=== PATIENT | female | born 1950 | race Caucasian/White ===

== ENCOUNTER 2016-12-11 16:15 | Emergency (ER) | payer BC ==
[2016-12-11] MEDS ORDERED: HYDROmorphone 1 MG/ML 1 ML SYRINGE IVP STA ×2 (16:38→17:34)
[2016-12-11] MEDS ORDERED: ONDANSETRON 4 MG/2 ML VIAL IVP STA (16:38)
--- NOTE | 2016-12-11 16:40 | ED ---
General Adult HPI - General Chief complaint: Extremity Injury, Lower Stated complaint: Fall Left ankle injury Time Seen by Provider: 12/11/16 16:19 Source: patient, EMS, RN notes reviewed Mode of arrival: EMS Limitations: no limitations - History of Present Illness Initial comments: Patient's a 66-year-old female who presents emergency room today with a chief complaint of injury to the left ankle that occurred approximately an hour ago. Does admit that she was walking when she slipped with the right foot twisting the left ankle and felt a pop. States unable to bear weight or ambulate. She denies any other complaints or symptoms. Denies any head injury or loss consciousness. Patient denies any recent fever, chills, shortness of breath, chest pain, back pain, abdominal pain, nausea or vomiting, dysuria or hematuria , constipation or diarrhea, headaches or visual changes, or any other complaints. - Related Data Home Medications Medication Instructions Recorded Confirmed Benazepril/Hydrochlorothiazide 2 tab PO DAILY 12/11/16 12/11/16 [Benazepril-Hctz 10-12.5 mg Tab] Budesonide/Formoterol Fumarate 2 puff INHALATION RT-BID 12/11/16 12/11/16 [Symbicort 160-4.5 Mcg Inhaler] Esomeprazole Magnesium [NexIUM] 40 mg PO DAILY 12/11/16 12/11/16 amLODIPine [Norvasc] 5 mg PO DAILY 12/11/16 12/11/16 sulfaSALAzine [Azulfidine] 500 mg PO Q8H 12/11/16 12/11/16 Previous Rx's Medication Instructions Recorded Hydrocodone/Acetaminophen [Phoenix 1 each PO Q6HR PRN #20 tab 12/11/16 5-325] Allergies Allergy/AdvReac Type Severity Reaction Status Date / Time No Known Allergies Allergy Verified 12/11/16 17:48 Review of Systems ROS Statement: Those systems with pertinent positive or pertinent negative responses have been documented in the HPI. ROS Other: All systems not noted in ROS Statement are negative. Past Medical History Past Medical History: COPD, Hypertension Additional Past Medical History / Comment(s): ulcerative colitis, fatty liver History of Any Multi-Drug Resistant Organisms: None Reported Past Surgical History: Cholecystectomy, Hysterectomy, Tonsillectomy Additional Past Surgical History / Comment(s): left knee scope, oopherectomy Past Psychological History: No Psychological Hx Reported Smoking Status: Former smoker Past Alcohol Use History: None Reported Past Drug Use History: None Reported General Exam - General Exam Comments Initial Comments: General: The patient is awake and alert, in no distress, and does not appear acutely ill. Neck: The neck is supple, there is no tenderness or JVD. Cardiovascular: There is a regular rate and rhythm. No murmur, rub or gallop is appreciated. Respiratory: Lungs are clear to auscultation, respirations are non-labored, breath sounds are equal. No wheezes, stridor, rales, or rhonchi. Musculoskeletal: Patient does have moderate swelling to the left ankle. Patient tender palpation over both the medial and lateral malleolus. Mild tenderness down into the distal third metatarsal. No tenderness over the fibular head or the left knee. No other bony tenderness. Sensation intact pulses equal bilaterally 2+. Strength unable be assessed. Neurological: A&O x 3. CN II-XII intact, There are no obvious motor or sensory deficits. Coordination appears grossly intact. Speech is normal. Skin: Skin is warm and dry and no rashes or lesions are noted. Psychiatric: Normal mood and affect. Limitations: no limitations Course Vital Signs 12/11/16 16:22 Temperature 98.3 F Pulse Rate 88 Respiratory 20 Rate Blood Pressure 145/75 O2 Sat by Pulse 95 Oximetry Medical Decision Making - Medical Decision Making Patient's x-ray reviewed and does show a trimalleolar fracture of the left ankle. Case discussed with attending physician Dr. Londono who did discuss case with on-call orthopedics Dr. Gonzalez who recommended reduction placed in an splint and following up the office tomorrow morning. Postreduction film reviewed shows good alignment. Patient discharged on pain medication advised follow-up with orthopedics morning. Patient will plan states her stated and is in agreement. Disposition Clinical Impression: Trimalleolar fracture Disposition: HOME SELF-CARE Condition: Good Instructions: Ankle Fracture (ED) Prescriptions: Hydrocodone/Acetaminophen [Phoenix 5-325] 1 each PO Q6HR PRN #20 tab PRN Reason: Pain Referrals: None,Stated [Primary Care Provider] - 1-2 days Prabhjot Gonzalez DO [Doctor of Osteopathic Medicine] - 1-2 days Time of Disposition: 18:19
--- NOTE | 2016-12-11 17:21 | XR ---
History foot pain. Comparison none. Technique 3 views. FINDINGS: There is a spiral fracture of the distal fibula. There is transverse fracture of the medial malleolus . There is probably a 1 cm chip fracture of the posterior malleolus. There is almost 2 cm lateral sub luxation of the talus. There is an Achilles calcaneal spur. CONCLUSION: Trimalleolar fracture of the ankle with partial lateral dislocation of the talus.
--- NOTE | 2016-12-11 17:23 | XR ---
History foot pain. comparison none. Technique 3 views. FINDINGS: Metatarsals are intact. There is a ankle joint fracture that is described in the ankle report. The pa rtial bones are intact. The toes appear intact. Exam is limited slightly by patient positioning. CONCLUSION: Ankle fracture. No fracture seen of the left foot.
[2016-12-11] MEDS ORDERED: DIAZEPAM 5 MG/ML 2 ML SYRINGE IVP STA (17:24)
--- NOTE | 2016-12-11 18:39 | XR ---
EXAMINATION TYPE: XR ankle limited LT DATE OF EXAM: 12/11/2016 6:17 PM COMPARISON: Today HISTORY: Fracture post reduction TECHNIQUE: 2 views FINDINGS: There is trimalleolus fracture of the left ankle. There is a few millimeter anterior and la teral subluxation of the talus. Fragments are in reasonable position. IMPRESSION: There is satisfactory reduction of the fracture and subluxation compared to the first exa m.
[2016-12-11 18:50] VITALS: TEMP 97.1
[2016-12-11] MEDS ORDERED: NALOXONE 0.4 MG/ML 10 ML VIAL IVP STA (19:22)
[2016-12-11 20:06] VITALS: BP 128/70; PULSE 70; RESP 16
== END 2016-12-11 20:03 | disposition home or self-care (01) ==
LOC: EC 16:15
DX: S82.852A Displaced trimalleolar fracture of left lower leg, initial encounter for closed fracture (principal); I10 Essential (primary) hypertension; J44.9 Chronic obstructive pulmonary disease, unspecified; Z87.891 Personal history of nicotine dependence; Z79.51 Long term (current) use of inhaled steroids; Z79.899 Other long term (current) drug therapy; W01.0XXA Fall on same level from slipping, tripping and stumbling without subsequent striking against object, initial encounter; X50.1XXA Overexertion from prolonged static or awkward postures, initial encounter; Y92.89 Other specified places as the place of occurrence of the external cause
CPT/HCPCS: 73600; 73610; 73630; 99284; 27818; 96374; 96375 ×3; 96376; J2310; J3360; J2405; J1170

== ENCOUNTER → 2016-12-25 | Outpatient (CLI) | payer BC ==
[2016-12-25 07:37] LABS: Potassium 4.3 mmol/L (3.5-5.1)
== END | disposition home or self-care (01) ==
LOC: LABWHC1 06:51
PROVIDERS: ATTEND Orthopaedic Surgery
DX: Z01.812 Encounter for preprocedural laboratory examination (principal); Z79.899 Other long term (current) drug therapy
CPT/HCPCS: 36415; 80051

== ENCOUNTER → 2017-04-19 | Outpatient (CLI) | payer BC | END | disposition home or self-care (01) | LOC: LABWHC1 10:27 | PROVIDERS: ATTEND Family Medicine | DX: E87.6 Hypokalemia (principal) | CPT/HCPCS: 36415; 84132 ==

== ENCOUNTER → 2017-04-23 | Outpatient (CLI) | payer BC | END | disposition home or self-care (01) | LOC: LABWHC1 14:42 | PROVIDERS: ATTEND Family Medicine | DX: E87.6 Hypokalemia (principal) | CPT/HCPCS: 36415; 84132 ==

== ENCOUNTER → 2017-05-01 | Outpatient (CLI) | payer BC | END | disposition home or self-care (01) | LOC: LABWHC1 13:55 | PROVIDERS: ATTEND Family Medicine | DX: E87.6 Hypokalemia (principal) | CPT/HCPCS: 36415; 84132 ==

== ENCOUNTER → 2017-06-13 | Outpatient (CLI) | payer BC ==
--- NOTE | 2017-06-18 10:24 | MM ---
Reason for exam: screening (asymptomatic). History: Patient is postmenopausal. Benign excisional biopsy of the left breast, 1993. Physical Findings: A clinical breast exam by your physician is recommended on an annual basis and results should be correlated with mammographic findings. MG Screening Mammo w CAD Bilateral CC and MLO view(s) were taken. No prior studies available for comparison. The breast tissue is heterogeneously dense. This may lower the sensitivity of mammography. Finding: There are typically benign round, diffuse/scattered and grouped calcifications in both breasts. Focal asymmetry several levels. There is an indeterminate group of calcifications in the right breast anterior middle depth slight upper aspect. ASSESSMENT: Incomplete: need additional imaging evaluation, BI-RAD 0 RECOMMENDATION: Special view mammogram of the right breast. Ultrasound of the left breast. [facility] will attempt to contact patient to return for supplemental views and ultrasound.
== END | disposition home or self-care (01) ==
LOC: RADMAMWWP 10:02
PROVIDERS: ATTEND Family Medicine
DX: Z12.31 Encounter for screening mammogram for malignant neoplasm of breast (principal)

== ENCOUNTER → 2017-06-28 | Outpatient (CLI) | payer BC ==
--- NOTE | 2017-07-02 08:20 | MM ---
Reason for exam: additional evaluation requested from abnormal screening. Last mammogram was performed less than 1 month ago. History: Patient is postmenopausal. Benign excisional biopsy of the left breast, 1993. Took estrogen for 10 years beginning at age 50. Took progesterone for 10 years beginning at age 50. Physical Findings: Nurse did not find any significant physical abnormalities on exam. MG Work Up Mamm w CAD RT CC, MLO, LM, LM with magnification, and CC with magnification view(s) were taken of the right breast. Prior study comparison: June 13, 2017, bilateral MG screening mammo w CAD. Finding: There are indeterminate calcifications in the right breast. Tissue biopsy recommended. These results were verbally communicated with the patient and result sheet given to the patient on 06/28/17. ASSESSMENT: Suspicious, BI-RAD 4 RECOMMENDATION: Stereotactic core biopsy of the right breast. Called with mammographic findings and has scheduled an appointment for the patient for 07/05/17 at 9:[address] Linton. PRELIMINARY REPORT CALLED AND FAXED TO DR. LINTON ON 07/02/17.
--- NOTE | 2017-07-02 08:22 | USB ---
Reason for exam: additional evaluation requested from abnormal screening. History: Patient is postmenopausal. Benign excisional biopsy of the left breast, 1993. Took estrogen for 10 years beginning at age 50. Took progesterone for 10 years beginning at age 50. US Breast Workup LT Left breast ultrasound demonstrates a 1.2 x 0.5 x 1.0cm oval, cystic lesion at 12 o'clock, a 1.1 x 0.5 x 0.9cm oval, cystic lesion at 3 o'clock, a 0.8 x 0.3 x 0.7cm oval, cystic lesion at 5 o'clock and a 0.6 x 0.3 x 0.5cm oval, mixed lesion at 7 o'clock for which a 6 month follow up is recommended. These results were verbally communicated with the patient and result sheet given to the patient on 06/28/17. ASSESSMENT: Probably benign, BI-RAD 3 RECOMMENDATION: Ultrasound of the left breast in 6 months.
== END | disposition home or self-care (01) ==
LOC: RADMAMWWP 13:46
PROVIDERS: ATTEND Family Medicine
DX: R92.8 Other abnormal and inconclusive findings on diagnostic imaging of breast (principal)
CPT/HCPCS: 76641; G0206

== ENCOUNTER 2017-09-06 06:56 | Day surgery (SDC) | payer MEDICARE, BC ==
[2017-09-04 12:03] VITALS: BMI 36.0
[~2017-09-06 06:56] MED LIST: DEXAMETHASONE SOD PHOSPHATE 10 MG/ML 1 ML VIAL IV ONE; HEPARIN SODIUM,PORCINE 5,000 UNIT/ML 1 ML VIAL SQ ONE; HYDROmorphone 0.5 MG/0.5 ML SYRINGE IVP PRN; LACTATED RINGERS 1,000 ML IV SCH; LIDOCAINE 1% 20 ML VIAL (10MG/ML) FOR IV START INTRADERMA PRN; MIDAZOLAM 2 MG/2 ML VIAL IV PRN; ONDANSETRON 4 MG/2 ML VIAL IVP ONE; Pre Op ABX Message 1 EACH MISC MISCELLANE ONE; SCOPOLAMINE 1.5MG/72HR PATCH TRANSDERM ONE
[2017-09-06] MEDS ORDERED: LIDOCAINE 1% INJ 10MG/ML (20 ML MDV) SQ ONE (08:41)
[2017-09-06] MEDS ORDERED: BUPIVACAINE (PF) 0.25% 30 ML VIAL SQ ONE (09:14)
[2017-09-06] MEDS ORDERED: LIDOCAINE 1% INJ 10MG/ML (20 ML MDV) ONE (09:57)
[2017-09-06] MEDS ORDERED: fentaNYL (PF) 50 MCG/ML 2 ML AMP ONE (09:57)
[2017-09-06] MEDS ORDERED: SUCCINYLCHOLINE CHLORIDE 100 MG/5 ML SYR IV ONE (09:57)
[2017-09-06] MEDS ORDERED: PROPOFOL 10 MG/ML 20 ML VIAL IV ONE (09:57)
[2017-09-06] MEDS ORDERED: SODIUM CHLORIDE 0.9% 50 ML with ceFAZolin 2,000 MG IV ONE ×2 (10:09)
[2017-09-06] MEDS ORDERED: LACTATED RINGERS 1,000 ML IV ONE (10:27)
[2017-09-06] MEDS ORDERED: NALOXONE 0.4 MG/ML 1 ML VIAL IV PRN (10:43)
[2017-09-06] MEDS ORDERED: traMADol 50 MG TAB PO PRN (10:43)
[2017-09-06] MEDS ORDERED: HYDROcodone/APAP 5-325MG 1 EACH TAB PO PRN (10:43)
--- NOTE | 2017-09-06 10:49 | P.OP ---
Date of Procedure: 09/06/17 Procedure(s) Performed: PREOPERATIVE DIAGNOSIS: Abnormal right mammogram POSTOPERATIVE DIAGNOSIS: Same PROCEDURE: Right Breast wire localization biopsy SURGEON: Kasia EBL: Minimal ANESTHESIA: Sedation plus local COMPLICATIONS: None OPERATIVE PROCEDURE: Patient was placed on the operating room table in the supine position. The patient's breast was prepped and draped in usual sterile fashion. A curvilinear incision was made adjacent to the wire entrance site. I followed the wire down into the breast tissue. The breast tissue around the tip of the wire was fully excised using electrocautery. The specimen was sent for specimen radiogram. The subcutaneous tissues were inspected. No bleeding was seen. The subcutaneous tissues were closed using 3-0 Vicryl sutures. The skin was closed using a running 4-0 Monocryl stitch. Steri-Strips and sterile dressings were applied. DISPOSITION: Stable to recovery room
[2017-09-06 10:54] LABS: Glucose,Whole Blood 115 mg/dL (75-99)
[2017-09-06 10:56] VITALS: TEMP 98.2
[2017-09-06] MEDS ORDERED: traMADol 50 MG TAB PO ONE (12:00)
[2017-09-06 12:07] VITALS: RESP 18
[2017-09-06 12:26] VITALS: BP 166/88; PULSE 88
--- NOTE | 2017-09-06 15:36 | MM ---
EXAMINATION TYPE: MG surgical specimen RT DATE OF EXAM: 09/06/2017 COMPARISON: NONE HISTORY: Abnormal mammogram, abnormal previous biopsy TECHNIQUE: Single mammographic specimen is presented. FINDINGS: Where is within the specimen. The wire appears to be pulled back somewhat from the original localization. There loops of clustered fine calcifications at the edge of the specimen and within the specimen. The clip is within the specimen. IMPRESSION: 1. Successful wire localization and excision. Pathology Results: Malignant BREAST, RIGHT, SITE A, BIOPSY: LOBULAR CARCINOMA IN SITU WITH CALCIFICATIONS. BACKGROUND FIBROCYSTIC CHANGE (STROMAL FIBROSIS, CYST FORMATION, ADENOSIS, COLUMNAR CELL CHANGE, DUCT HYPERPLASIA AND CALCIFICATIONS). Recommendation Surgical consult of the right breast. (appropriate oncologic management) DANIEL
--- NOTE | 2017-09-06 15:39 | MM ---
EXAMINATION TYPE: MG pre op needle loc RT DATE OF EXAM: 09/06/2017 COMPARISON: 06/28/2017, 07/22/2017 stereo CLINICAL HISTORY: LCIS TECHNIQUE: Needle localization with wire placement and surgical excision of area of concern in the right breast. FINDINGS: The procedure of needle localization with wire placement and than surgical excision was explained to the patient. Benefits, alternatives, and risks were discussed. An informed consent was then obtained. The shortest pathway for procedure was chosen. Shortest pathway was superior approach. The overlying skin was prepped and draped in usual sterile fashion. Lidocaine buffered with bicarbonate was used as anesthetic into the skin and subcutaneous tissue up to the level of area of concern. A 11 cm needle was used. It was placed via a superior approach under mammographic guidance. Subsequent 90 degrees mammogram show the needle to be in satisfactory position relative to the targeted area. At this point, wire was placed and the needle was withdrawn. The wire was fixed to patient's skin. Images were marked for surgeon. Case was discussed with the surgeon by telephone prior to surgery. Calcifications were localized. This area is passed the clip which is reported to have some migration from the original biopsy site. The patient tolerated the procedure well without any immediate complication. The patient was kept in the radiology department for short stay after the procedure and then taken to surgery for surgical excision. Targeted calcifications and wire are identified in specimen mammogram. The patient was kept in hospital for short stay after the procedure and then discharged home in stable condition. IMPRESSION: 1. Successful wire localization and excision. Recommendations: 1. Recommendations are pending pathology results. Pathology Results: Malignant BREAST, RIGHT, SITE A, BIOPSY: LOBULAR CARCINOMA IN SITU WITH CALCIFICATIONS. BACKGROUND FIBROCYSTIC CHANGE (STROMAL FIBROSIS, CYST FORMATION, ADENOSIS, COLUMNAR CELL CHANGE, DUCT HYPERPLASIA AND CALCIFICATIONS). Recommendation Surgical consult of the right breast. (appropriate oncologic management) DANIEL
== END 2017-09-06 13:04 | disposition home or self-care (01) ==
LOC: OR 06:56
PROVIDERS: ATTEND Surgery
DX: D05.01 Lobular carcinoma in situ of right breast (principal); N60.91 Unspecified benign mammary dysplasia of right breast; N60.21 Fibroadenosis of right breast; I10 Essential (primary) hypertension; J44.9 Chronic obstructive pulmonary disease, unspecified; K21.9 Gastro-esophageal reflux disease without esophagitis; K51.90 Ulcerative colitis, unspecified, without complications; E11.9 Type 2 diabetes mellitus without complications; Z79.899 Other long term (current) drug therapy; Z79.51 Long term (current) use of inhaled steroids; Z88.6 Allergy status to analgesic agent
CPT/HCPCS: 19125; 88307; 76098; 19281; J2250; J1644; J1100; J2405; J2001; J3010; J0690; J0330; J2704

== ENCOUNTER → 2018-03-24 | Outpatient (CLI) | payer MEDICARE ==
--- NOTE | 2018-03-24 10:40 | MM ---
Reason for exam: follow-up at short interval from prior study. Last mammogram was performed 9 months ago. History: Patient is postmenopausal and has history of breast cancer at age 66. Malignant MG pre op needle loc RT of the right breast, September 06, 2017. Malignant MG stereo VAD BX RT of the right breast, July 22, 2017. Benign excisional biopsy of the left breast, 1993. Took estrogen for 10 years beginning at age 50. Took progesterone for 10 years beginning at age 50. Physical Findings: Nurse did not find any significant physical abnormalities on exam. MG 3D Diag Mammo W/Cad RT CC and MLO view(s) were taken of the right breast. Prior study comparison: June 28, 2017, right breast MG work up mamm w CAD RT. June 13, 2017, bilateral MG screening mammo w CAD. The breast tissue is heterogeneously dense. This may lower the sensitivity of mammography. There is chronic nodularity in the right breast. Post surgical changes in the right breast. Patient due for left side in 2-3 months. Any evolving post surgical changes can be reassessed at that time. These results were verbally communicated with the patient and result sheet given to the patient on 03/24/18. ASSESSMENT: Probably benign, BI-RAD 3 RECOMMENDATION: Follow-up diagnostic mammogram of both breasts in 3 months. Back on schedule for June 2018.
== END | disposition home or self-care (01) ==
LOC: RADMAMWWP 09:28
PROVIDERS: ATTEND Surgery
DX: Z08 Encounter for follow-up examination after completed treatment for malignant neoplasm (principal); Z85.3 Personal history of malignant neoplasm of breast
CPT/HCPCS: 77065; G0279; 77061

== ENCOUNTER → 2018-06-25 | Outpatient (CLI) | payer MEDICARE ==
--- NOTE | 2018-06-25 11:55 | MM ---
Reason for exam: follow-up at short interval from prior study. Last mammogram was performed 3 months ago. History: Patient is postmenopausal and has history of breast cancer at age 66. Malignant MG pre op needle loc RT of the right breast, September 06, 2017. Malignant MG stereo VAD BX RT of the right breast, July 22, 2017. Benign excisional biopsy of the left breast, 1993. Took estrogen for 10 years beginning at age 50. Took progesterone for 10 years beginning at age 50. Physical Findings: Nurse did not find any significant physical abnormalities on exam. MG Diagnostic Mammo w CAD SARAH Bilateral CC, MLO, and XCCL view(s) were taken. Prior study comparison: March 24, 2018, right breast MG 3d diag mammo w/cad RT. June 28, 2017, right breast MG work up mamm w CAD RT. The breast tissue is heterogeneously dense. This may lower the sensitivity of mammography. There is chronic nodularity bilaterally. Given the extensive nodularity which appear relatively similar and patients high risk right excision of LCIS, diagnostic follow up recommended in 1 year. These results were verbally communicated with the patient and result sheet given to the patient on 06/25/18. ASSESSMENT: Probably benign, BI-RAD 3 RECOMMENDATION: Follow-up diagnostic mammogram of both breasts in 1 year.
== END | disposition home or self-care (01) ==
LOC: RADMAMWWP 09:39
PROVIDERS: ATTEND Surgery
DX: R92.8 Other abnormal and inconclusive findings on diagnostic imaging of breast (principal)
CPT/HCPCS: 77066

== ENCOUNTER → 2019-08-13 | Outpatient (CLI) | payer MEDICARE, BC ==
--- NOTE | 2019-08-17 09:45 | MM ---
Reason for exam: screening (asymptomatic). Last mammogram was performed 1 year and 2 months ago. History: Patient is postmenopausal and has history of breast cancer at age 66. Malignant MG pre op needle loc RT of the right breast, September 06, 2017. Malignant MG stereo VAD BX RT of the right breast, July 22, 2017. Benign excisional biopsy of the left breast, 1993. Took estrogen for 10 years beginning at age 50. Took progesterone for 10 years beginning at age 50. Physical Findings: A clinical breast exam by your physician is recommended on an annual basis and results should be correlated with mammographic findings. MG 3D Screening Mammo W/Cad Bilateral CC and MLO view(s) were taken. Prior study comparison: June 25, 2018, bilateral MG diagnostic mammo w CAD SARAH. March 24, 2018, right breast MG 3d diag mammo w/cad RT. The breast tissue is heterogeneously dense. This may lower the sensitivity of mammography. Stable benign calcifications. No significant changes when compared with prior studies. ASSESSMENT: Benign, BI-RAD 2 RECOMMENDATION: Routine screening mammogram of both breasts in 1 year.
== END | disposition home or self-care (01) ==
LOC: RADMAMWWP 07:40
PROVIDERS: ATTEND Family Medicine
DX: Z12.31 Encounter for screening mammogram for malignant neoplasm of breast (principal)
CPT/HCPCS: 77063; 77067

== ENCOUNTER → 2020-09-05 | Outpatient (CLI) | payer MEDICARE ==
[~2020-09-05] MED LIST changes: -DEXAMETHASONE SOD PHOSPHATE 10 MG/ML 1 ML VIAL IV ONE; -HEPARIN SODIUM,PORCINE 5,000 UNIT/ML 1 ML VIAL SQ ONE; -HYDROmorphone 0.5 MG/0.5 ML SYRINGE IVP PRN; -LACTATED RINGERS 1,000 ML IV SCH; -LIDOCAINE 1% 20 ML VIAL (10MG/ML) FOR IV START INTRADERMA PRN; -MIDAZOLAM 2 MG/2 ML VIAL IV PRN; -ONDANSETRON 4 MG/2 ML VIAL IVP ONE; -Pre Op ABX Message 1 EACH MISC MISCELLANE ONE; +REGADENOSON 0.4 MG/5 ML SYRINGE IV ONE; -SCOPOLAMINE 1.5MG/72HR PATCH TRANSDERM ONE
--- NOTE | 2020-09-05 12:20 | NM ---
EXAMINATION TYPE: NM stress lexiscan cardiolite DATE OF EXAM: 09/05/2020 COMPARISON: NONE HISTORY: I10 hypertention TECHNIQUE: After the intravenous administration of 9.7 mCi Tc 99m Sestamibi - Cardiolite resting SPE CT images acquired 45 minutes post injection. The patient received 0.4mg Lexiscan, 25.9 mCi Tc 99m Sestamibi - Stress images obtained [address] injection FINDINGS: Review of stress and rest SPECT images demonstrates no distinct perfusion abnormality. Gated analysi s shows normal wall motion with an estimated left ventricular ejection fraction of 30 %. IMPRESSION: No scintigraphic evidence for reversible ischemia.
--- NOTE | 2020-09-05 12:55 | P.STRESS ---
- Stress Test Note Stress Test Results/Findings: Exam Performed: NM stress lexiscan cardiolite Exam Date: 09/05/20 Reason for Exam: CHEST PRESSURE Height: 5 ft 9 in Weight: 116.573 kg Protocol: LEXISCAN CARDIOLITE Stage: N/A Duration of Exercise: N/A Resting Heart Rate: 86 Resting Blood Pressure: 135/71 Maximum Achieved Heart Rate: 104 Maximum Achieved Blood Pressure: 150/73 85% PMHR: 130 100% PMHR: 153 METS: N/A Technologist Comment: Stress Test Results/Findings: At baseline EKG showed normal sinus rhythm, left axis deviation, nonspecific T- wave inversions in aVL, V1, occasional PVCs. Patient recieved IV infusion of Lexiscan 0.4mg and at peak infusion EKG showed no significant change from baseline. Conclusions: 1. Normal EKG response to Lexiscan infusion 2. Nuclear imaging to be reported separately.
== END | disposition home or self-care (01) ==
LOC: RADNMMAIN 08:21
PROVIDERS: ATTEND Family Medicine
DX: I10 Essential (primary) hypertension (principal); E11.9 Type 2 diabetes mellitus without complications; E78.00 Pure hypercholesterolemia, unspecified
CPT/HCPCS: 93017; 78452; A9500

== ENCOUNTER → 2021-10-04 | Outpatient (CLI) | payer MEDICARE ==
--- NOTE | 2021-10-05 13:12 | MM ---
Reason for exam: additional evaluation requested from abnormal screening. Last mammogram was performed less than 1 month ago. History: Patient is postmenopausal and has history of breast cancer at age 66. Malignant MG pre op needle loc RT of the right breast, September 06, 2017. Malignant MG stereo VAD BX RT of the right breast, July 22, 2017. Benign excisional biopsy of the left breast, 1993. Took estrogen for 10 years beginning at age 50. Took progesterone for 10 years beginning at age 50. Physical Findings: Nurse Summary: 3cm adenopathy in the left axilla (nurse mj). MG 3D Work Up W/Cad RT CC with magnification, LM with magnification, and LM view(s) were taken of the right breast. Prior study comparison: September 25, 2021, bilateral MG 3d screening mammo w/cad. August 13, 2019, bilateral MG 3d screening mammo w/cad. The breast tissue is heterogeneously dense. This may lower the sensitivity of mammography. Benign appearing calcifications in the right breast. These results were verbally communicated with the patient and result sheet given to the patient on 10/04/21. ASSESSMENT: Probably benign, BI-RAD 3 RECOMMENDATION: Follow-up diagnostic mammogram of the right breast in 3 months.
--- NOTE | 2021-10-05 13:13 | USB ---
Reason for exam: additional evaluation requested from abnormal screening. History: Patient is postmenopausal and has history of breast cancer at age 66. Malignant MG pre op needle loc RT of the right breast, September 06, 2017. Malignant MG stereo VAD BX RT of the right breast, July 22, 2017. Benign excisional biopsy of the left breast, 1993. Took estrogen for 10 years beginning at age 50. Took progesterone for 10 years beginning at age 50. US Breast Workup Limited LT Left limited breast ultrasound including focal area of concern, retroareolar and axilla demonstrates a 2.6 x 1.1 x 2.1cm lymph node at the axilla. These results were verbally communicated with the patient and result sheet given to the patient on 10/04/21. ASSESSMENT: Probably benign, BI-RAD 3 RECOMMENDATION: Ultrasound of the left breast in 3 months.
== END | disposition home or self-care (01) ==
LOC: RADMAMWWP 14:52
PROVIDERS: ATTEND Family Medicine
DX: R92.8 Other abnormal and inconclusive findings on diagnostic imaging of breast (principal); N63.0 Unspecified lump in unspecified breast; Z78.0 Asymptomatic menopausal state; Z85.3 Personal history of malignant neoplasm of breast
CPT/HCPCS: 77065; 76642; G0279; 77061

== ENCOUNTER → 2022-04-18 | Outpatient (CLI) | payer MEDICARE ==
--- NOTE | 2022-04-18 15:22 | USB ---
Reason for Exam: Follow-up at short interval from prior study. Patient History: Menarche at age 15. First Full-Term at age 23. Left ovary removed at age 50. Right ovary removed at age 50. Hysterectomy at age 50. Postmenopausal. Breast cancer, right, age 66. Estrogen for 10 years from age 50 until age 60. Progesterone for 10 years from age 50 until age 60. 1993, Benign Excisional Biopsy on the left side. 09/06/2017, Malignant Core Biopsy on the right side. 07/22/2017, Malignant Core Biopsy on the right side. Technique: Method: Targeted. Prior Study Comparison: 08/13/2019 Bilateral Screening Mammogram, [facility]. 09/25/2021 Bilateral Screening Mammogram, [facility]. 10/04/2021 Right Diagnostic Mammogram, [facility]. Findings: The axilla of the left breast was scanned. There is a 2.6 x 1.1 x 2.1 cm lymph node within the left axilla, present previously. Exam appears stable from 10/04/2021. Overall Assessment: Benign, BI-RAD 2 Management: Diagnostic Mammogram of both breasts in 5 months. A clinical breast exam by your physician is recommended on an annual basis and results should be correlated with mammographic findings. Electronically signed and approved by: Bertram Fitzgerald D.O. Radiologis
--- NOTE | 2022-04-18 16:53 | MM ---
Reason for Exam: Clinical finding. Last screening mammogram was performed 6 month(s) ago. Patient History: Menarche at age 15. First Full-Term at age 23. Left ovary removed at age 50. Right ovary removed at age 50. Hysterectomy at age 50. Postmenopausal. Breast cancer, right, age 66. Estrogen for 10 years from age 50 until age 60. Progesterone for 10 years from age 50 until age 60. 1993, Benign Excisional Biopsy on the left side. 09/06/2017, Malignant Core Biopsy on the right side. 07/22/2017, Malignant Core Biopsy on the right side. Prior Study Comparison: 08/13/2019 Bilateral Screening Mammogram, [facility]. 09/25/2021 Bilateral Screening Mammogram, [facility]. 10/04/2021 Right Diagnostic Mammogram, [facility]. Tissue Density: Right: The breast tissue is heterogeneously dense. This may lower the sensitivity of mammography. Findings: Analyzed By CAD. There is focal asymmetry in the upper outer aspect right breast which appears stable. Benign scattered calcifications are present. No suspicious spiculated or lobular masses cluster of microcalcifications, architectural distortion or other secondary signs to radiographically apparent. Overall Assessment: Benign, BI-RAD 2 Management: Diagnostic Mammogram of the right breast in 1 year. A clinical breast exam by your physician is recommended on an annual basis and results should be correlated with mammographic findings. This exam should not preclude additional follow-up of suspicious palpable abnormalities. Results were given to the patient verbally at the time of exam. Electronically signed and approved by: Bertram Fitzgerald D.O. Radiologis
== END | disposition home or self-care (01) ==
LOC: RADMAMWWP 14:22
PROVIDERS: ATTEND Family Medicine
DX: C50.919 Malignant neoplasm of unspecified site of unspecified female breast (principal); R92.8 Other abnormal and inconclusive findings on diagnostic imaging of breast; Z78.0 Asymptomatic menopausal state
CPT/HCPCS: 77065; 76642; G0279; 77061

== ENCOUNTER → 2022-09-18 | Outpatient (CLI) | payer MEDICARE ==
--- NOTE | 2022-09-18 11:42 | MM ---
Reason for Exam: Follow-up at short interval from prior study. Last screening mammogram was performed 11 month(s) ago. Patient History: Menarche at age 15. First Full-Term at age 23. Left ovary removed at age 50. Right ovary removed at age 50. Hysterectomy at age 50. Postmenopausal. Breast cancer, right, age 66. Estrogen for 10 years from age 50 until age 60. Progesterone for 10 years from age 50 until age 60. 1993, Benign Excisional Biopsy on the left side. 09/06/2017, Malignant Core Biopsy on the right side. 07/22/2017, Malignant Core Biopsy on the right side. Tissue Density: There are scattered fibroglandular densities. Findings: Analyzed By CAD. There is some underlying chronic nodularity. A area of 1 cm nodularity central lower outer quadrant left breast middle to posterior depth appears more defined. On spot compression, lobulated margins are present. Some minimal associated calcifications. At the site of previous upper outer quadrant posterior right breast microcalcifications, there is an oval area of focal asymmetry which is slightly more defined. This may represent superimposition shadow but further ultrasound assessment recommended. The calcifications are unchanged. Remote history of right breast cancer. Overall Assessment: Incomplete: need additional imaging evaluation, BI-RAD 0 Management: Diagnostic Breast Ultrasound of both breasts. Right upper outer quadrant and left lower outer quadrant. Electronically signed and approved by: Sarahy Chavez M.D. Radiologist
--- NOTE | 2022-09-18 12:57 | USB ---
Reason for Exam: Additional evaluation requested from abnormal screening. Patient History: Menarche at age 15. First Full-Term at age 23. Left ovary removed at age 50. Right ovary removed at age 50. Hysterectomy at age 50. Postmenopausal. Breast cancer, right, age 66. Estrogen for 10 years from age 50 until age 60. Progesterone for 10 years from age 50 until age 60. 1993, Benign Excisional Biopsy on the left side. 09/06/2017, Malignant Core Biopsy on the right side. 07/22/2017, Malignant Core Biopsy on the right side. Technique: Method: Targeted. Prior Study Comparison: 09/25/2021 Bilateral Screening Mammogram, [facility]. 10/04/2021 Right Diagnostic Mammogram, [facility]. 10/04/2021 Left Diagnostic Ultrasound, [facility] 04/18/2022 Right MG 3D diag mammo w/cad RT, [facility]. 04/18/2022 Right US breast axilla LT, [facility]. Findings: The upper outer quadrant of the right breast, the lower outer quadrant of the left breast, the axilla of both breasts and the retroareolar of both breasts were scanned. Targeted ultrasound upper outer quadrant right breast including the subareolar region and axilla. There is a heterogeneous 4.3 x 3.7 x 2.7 cm area that has the appearance of a dense island of tissue. No discrete solid or cystic lesion. Subareolar duct ectasia is noted. Target ultrasound lower outer quadrant left breast 3:00 to 6:00 including the axilla and subareolar region. At the 4:00 position, there is either a debris-filled cyst cluster or mildly complex cyst measuring 1.1 x 0.7 x 0.5 cm. Internal thickened septation measures up to 3 mm. Likely mammographic correlate. Six-month follow-up recommended to reassess. Some additional duct ectasia is present on this side as well. No axillary lymphadenopathy. Overall Assessment: Probably benign, BI-RAD 3 Management: Diagnostic Mammogram of both breasts in 6 months. Diagnostic Breast Ultrasound of the left breast in 6 months. For (1) the mammographic upper outer quadrant lateral right breast asymmetric density, (2) lower outer quadrant left breast focal asymmetry, and (3) either cyst cluster versus complex cyst 4:00 left breast on ultrasound. Results were given to the patient verbally at the time of exam. Electronically signed and approved by: Sarahy Chavez M.D. Radiologist
== END | disposition home or self-care (01) ==
LOC: RADMAMWWP 10:42
PROVIDERS: ATTEND Family Medicine
DX: R92.8 Other abnormal and inconclusive findings on diagnostic imaging of breast (principal); Z78.0 Asymptomatic menopausal state; Z90.721 Acquired absence of ovaries, unilateral
CPT/HCPCS: 77066; 76642; G0279; 77062

== ENCOUNTER → 2023-03-20 | Outpatient (CLI) | payer MEDICARE ==
--- NOTE | 2023-03-20 10:35 | MM ---
Reason for Exam: Follow-up at short interval from prior study. Last screening mammogram was performed 6 month(s) ago. Patient History: Menarche at age 15. First Full-Term at age 23. Left ovary removed at age 50. Right ovary removed at age 50. Hysterectomy at age 50. Postmenopausal. Breast cancer, right, age 66. Estrogen for 10 years from age 50 until age 60. Progesterone for 10 years from age 50 until age 60. 1993, Benign Excisional Biopsy on the left side. 09/06/2017, Malignant Core Biopsy on the right side. 07/22/2017, Malignant Core Biopsy on the right side. Prior Study Comparison: 03/24/2018 Right Diagnostic Mammogram, [facility]. 06/25/2018 Bilateral Diagnostic Mammogram, [facility]. 08/13/2019 Bilateral Screening Mammogram, [facility]. 09/25/2021 Bilateral Screening Mammogram, [facility]. 10/04/2021 Right Diagnostic Mammogram, [facility]. 10/04/2021 Left Diagnostic Ultrasound, [facility]. 04/18/2022 Right MG 3D diag mammo w/cad RT, [facility]. 04/18/2022 Right US breast axilla LT, [facility]. 09/18/2022 Bilateral US breast limited BILAT, [facility]. 09/18/2022 Bilateral MG 3D diag mammo w/cad SARAH, [facility]. Tissue Density: The breast tissue is heterogeneously dense. This may lower the sensitivity of mammography. Findings: Analyzed By CAD. Stable exam from 09/18/2022 with similar appearing fibroglandular tissue bilaterally. Findings on prior ultrasound will be followed up with ultrasound same day. No new suspicious calcifications, masses or distortions identified. Overall Assessment: Incomplete: need additional imaging evaluation, BI-RAD 0 Management: Diagnostic Breast Ultrasound of the left breast. Results were given to the patient verbally at the time of exam. Patient should continue monthly self-breast exams. A clinical breast exam by your physician is recommended on an annual basis. This exam should not preclude additional follow-up of suspicious palpable abnormalities. Note on Krista scores and lifetime risk: 1. A Krista score greater than 3% is considered moderate risk. If this is the case, consider specialist referral to assess eligibility for a risk reducing agent. 2. If overall lifetime risk for the development of breast cancer is 20% or higher, the patient may qualify for future screening with alternating mammogram and breast MRI. Electronically signed and approved by: Jose Perez DO
--- NOTE | 2023-03-20 11:46 | USB ---
Reason for Exam: Follow-up at short interval from prior study. Patient History: Menarche at age 15. First Full-Term at age 23. Left ovary removed at age 50. Right ovary removed at age 50. Hysterectomy at age 50. Postmenopausal. Breast cancer, right, age 66. Estrogen for 10 years from age 50 until age 60. Progesterone for 10 years from age 50 until age 60. 1993, Benign Excisional Biopsy on the left side. 09/06/2017, Malignant Core Biopsy on the right side. 07/22/2017, Malignant Core Biopsy on the right side. Technique: Method: Targeted. Prior Study Comparison: 10/04/2021 Right Diagnostic Mammogram, [facility]. 04/18/2022 Right MG 3D diag mammo w/cad RT, [facility]. 09/18/2022 Bilateral US breast limited BILAT, [facility]. 09/18/2022 Bilateral MG 3D diag mammo w/cad SARAH, [facility]. Findings: The lateral section of the breast of the left breast, the area of palpable concern of the left breast, the axilla of the left breast and the retroareolar of the left breast were scanned. Imaged: Ultrasound imaging of: All 4 quadrants, the retroareolar region and axilla. Suspected dilated ducts within the left breast at 4:00 15 cm from the nipple which are stable from 09/18/2022. Stable appearing lymph node at 3:00 20 cm from the nipple. No suspicious features. Overall Assessment: Benign, BI-RAD 2 Management: Screening Mammogram of both breasts in 1 year. A clinical breast exam by your physician is recommended on an annual basis and results should be correlated with mammographic findings. This exam should not preclude additional follow-up of suspicious palpable abnormalities. Results were given to the patient verbally at the time of exam. Electronically signed and approved by: Jose Perez DO
== END | disposition home or self-care (01) ==
LOC: RADMAMWWP 09:35
PROVIDERS: ATTEND Family Medicine
DX: R92.8 Other abnormal and inconclusive findings on diagnostic imaging of breast (principal); Z78.0 Asymptomatic menopausal state; Z85.3 Personal history of malignant neoplasm of breast
CPT/HCPCS: 77066; 76642; G0279; 77062

== ENCOUNTER → 2024-04-14 | Outpatient (CLI) | payer MEDICARE ==
--- NOTE | 2024-04-14 10:06 | BD ---
EXAMINATION TYPE: Axial Bone Density DATE OF EXAM: 04/14/2024 CLINICAL HISTORY: 73 years old Female. ICD-10 CODE: Z78.0 ASYMPTOMATIC MENOPAUSAL STATE Height: 68.2in Weight: 241lb FRAX RISK QUESTIONS: History of Fracture in Adulthood: yes Secondary Osteoporosis: RISK FACTORS HISTORY OF: MEDICATIONS: EXAM MEASUREMENTS: Bone mineral densitometry was performed using the [employer]. Bone mineral density as measured about the Lumbar spine is: ----- L1-L4(G/cm2): 1.614 T Score Values are as follows: ----- L1: 1.9 ----- L2: 2.4 ----- L3: 4.1 ----- L4: 4.9 ----- L1-L4: 3.6 Z Score Values are as follows: ----- L1: 2.4 ----- L2: 2.9 ----- L3: 4.6 ----- L4: 5.5 ----- L1-L4: 4.1 First dexa at [facility] Bone mineral density about the R hip (g/cm2): 0.844 Bone mineral density about the L hip (g/cm2): 0.918 T Score values are as follows: -----R Neck: -1.6 -----L Neck: -1.3 -----R Total: -1.3 -----L Total: -0.7 Z Score values are as follows: -----R Neck: -0.6 -----L Neck: -0.3 -----R Total: -0.6 -----L Total: 0.0 First dexa at [facility] FRAX%s: The graph provided illustrates a 15.4% chance for a major osteoporotic fx and a 2.4% chance f or the hips probability for fx in 10 years time. IMPRESSION: Normal (Values between +1 and -1 indicate normal bone mass). Consider repeating this study in 5 year s or sooner if there is some new clinical indication. NOTE: T-SCORE=SD OF THE YOUNG ADULT MEAN.
--- NOTE | 2024-04-16 09:52 | MM ---
Reason for Exam: Screening (asymptomatic). Last mammogram was performed 1 year(s) and 1 month(s) ago. Patient History: Menarche at age 15. First Full-Term at age 23. Left ovary removed at age 50. Right ovary removed at age 50. Hysterectomy at age 50. Postmenopausal. Breast cancer, right, age 66. Estrogen for 10 years from age 50 until age 60. Progesterone for 10 years from age 50 until age 60. 1993, Benign Excisional Biopsy on the left side. 09/06/2017, Malignant Core Biopsy on the right side. 07/22/2017, Malignant Core Biopsy on the right side. Prior Study Comparison: 04/18/2022 Right MG 3D diag mammo w/cad RT, [facility]. 09/18/2022 Bilateral MG 3D diag mammo w/cad SARAH, [facility]. 03/20/2023 Bilateral MG 3D diag mammo w/cad SARAH, [facility]. Tissue Density: The breasts are heterogeneously dense, which may obscure small masses. Findings: Analyzed By CAD. There is no suspicious group of microcalcifications or new suspicious mass in either breast. Overall Assessment: Benign, BI-RAD 2 Management: Screening Mammogram of both breasts in 1 year. . Patient should continue monthly self-breast exams. A clinical breast exam by your physician is recommended on an annual basis. This exam should not preclude additional follow-up of suspicious palpable abnormalities. Note on Krista scores and lifetime risk: 1. A Krista score greater than 3% is considered moderate risk. If this is the case, consider specialist referral to assess eligibility for a risk reducing agent. 2. If overall lifetime risk for the development of breast cancer is 20% or higher, the patient may qualify for future screening with alternating mammogram and breast MRI. Electronically signed and approved by: Juliocesar Toledo M.D. Radiologis
== END | disposition home or self-care (01) ==
LOC: RADBDWWP 07:58
PROVIDERS: ATTEND Family Medicine
DX: Z12.31 Encounter for screening mammogram for malignant neoplasm of breast (principal); M85.89 Other specified disorders of bone density and structure, multiple sites; Z90.721 Acquired absence of ovaries, unilateral; Z78.0 Asymptomatic menopausal state
CPT/HCPCS: 77063; 77067; 77080

== ENCOUNTER → 2025-04-15 | Outpatient (CLI) | payer MEDICARE ==
--- NOTE | 2025-04-15 12:36 | MM ---
Reason for Exam: Screening (asymptomatic). Last screening mammogram was performed 12 month(s) ago. Patient History: Menarche at age 15. First Full-Term at age 23. Left ovary removed at age 50. Right ovary removed at age 50. Hysterectomy at age 50. Postmenopausal. Breast cancer, right, age 66. Estrogen for 10 years from age 50 until age 60. Progesterone for 10 years from age 50 until age 60. 1993, Benign Excisional Biopsy on the left side. 09/06/2017, Malignant Core Biopsy on the right side. 07/22/2017, Malignant Core Biopsy on the right side. Prior Study Comparison: 09/18/2022 Bilateral MG 3D diag mammo w/cad SARAH, [facility]. 03/20/2023 Bilateral MG 3D diag mammo w/cad SARAH, [facility]. 04/14/2024 Bilateral MG 3D screening mammo w/cad, [facility]. Tissue Density: There are scattered areas of fibroglandular density. Findings: Analyzed By CAD. Right breast: Stable benign-appearing nodular asymmetries. There is no suspicious group of microcalcifications or new suspicious mass. Left breast: Stable benign-appearing nodular asymmetriesThere is no suspicious group of microcalcifications or new suspicious mass. Overall Assessment: Benign, BI-RAD 2 Management: Screening Mammogram of both breasts in [address] [facility] will attempt to contact patient to return for supplemental views and ultrasound if indicated. Patient should continue monthly self-breast exams. A clinical breast exam by your physician is recommended on an annual basis. This exam should not preclude additional follow-up of suspicious palpable abnormalities. Note on Krista scores and lifetime risk: 1. A Krista score greater than 3% is considered moderate risk. If this is the case, consider specialist referral to assess eligibility for a risk reducing agent. 2. If overall lifetime risk for the development of breast cancer is 20% or higher, the patient may qualify for future screening with alternating mammogram and breast MRI. [facility], , 04/15/2025 12:34 PM. Electronically signed and approved by: Jose Perez DO
== END | disposition home or self-care (01) ==
LOC: RADMAMWWP 10:48
PROVIDERS: ATTEND Family Medicine
DX: Z12.31 Encounter for screening mammogram for malignant neoplasm of breast (principal); R92.323 Mammographic fibroglandular density, bilateral breasts; Z78.0 Asymptomatic menopausal state; Z85.3 Personal history of malignant neoplasm of breast
CPT/HCPCS: 77063; 77067